=== PATIENT | male | born 1970 | race Caucasian/White ===

== ENCOUNTER 2023-08-20 22:10 | Observation (INO) | payer BC, SELFPAY ==
[2023-08-20 16:13] VITALS: BP 169/111
[2023-08-20 16:31] LABS: % Eosinophils 0.5 % (0-6); % Immature Granulocytes 0.2 % (0-0.5); % Lymphocytes 16.1 % (20.5-51.1); % Monocytes 6.9 % (1.7-9.3); % Neutrophils 75.3 % (42.2-75.2); Absolute Basophils 0.1 10^3/uL (0-0.2); Absolute Lymphocytes 1.3 10^3/uL (1.2-3.4); Absolute Monocytes 0.6 10^3/uL (0.1-0.6); Absolute Neutrophils 6.1 10^3/uL (1.4-6.5); Hematocrit 40.9 % (39.0-52.0); Hemoglobin 15.2 g/dL (13.0-18.0); Mean Corp Hgb Conc. 37.2 g/dL (33.0-37.0); Mean Corpuscular Hgb 31.6 pg (27.0-31.0); Mean Platelet Volume 9.1 fL (7.4-10.4); Nucleated Red Blood Cells % 0 % (-); Platelet Count 173 10^3/uL (130-400); Red Blood Cell Count 4.81 10^6/uL (4.70-6.10); Red Cell Dist. Width 11.9 % (11.5-14.5); White Blood Cell Count 8.1 10^3/uL (4.8-10.8)
[2023-08-20 16:45] LABS: ALT (SGPT) 17 U/L (0-50); AST (SGOT) 24 U/L (17-59); Albumin 4.4 g/dl (3.5-5.0); Alkaline Phosphatase 52 U/L (38-126); Blood Urea Nitrogen 12 mg/dl (9-20); Calcium 8.8 mg/dl (8.4-10.2); Carbon Dioxide 22 mmol/L (22-30); Chloride 95 mmol/L (98-107); Glucose 106 mg/dl (70-99); Potassium 3.7 mmol/L (3.5-5.1); Sodium 128 mmol/L (135-145); Total Bilirubin 1.6 mg/dl (0.2-1.3); Total Protein 7.6 g/dl (6.3-8.2); eGFR > 60.00
[2023-08-20 16:54] LABS: Troponin I < 0.012 ng/ml
--- NOTE | 2023-08-20 17:25 | ED.GENMED ---
History of Present Illness
<Wendy Smith PA-C - Last Filed: 08/20/23 23:11>
General
Chief Complaint: Blood Pressure Problem
Source: patient
Exam Limitations: none
Time Seen by Provider: 08/20/23 17:05
Nursing documentation reviewed up to this point in time: agreed with
Travel History
Have you had any contact with someone who has COVID-19?: No
Do you have any symptoms of coronavirus? Fever > 100 degrees, chills, cough, shortness of breath, sore throat, loss of taste or smell, muscle aches, or headache?: No
History of Present Illness
History of Present Illness:
pt is a 53 y/o M
previuosly was told to start BP meds but never did and asys that with diet and exercise his bp improved
also unprovoked dvt on anticoagluation for 6 mo, neg coagulopathy w/u previously
here with chest pain that was dull mild left of midline pain all day and then worse at 2 pm while working
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 he went next door to another teachers room and said he didn't feel right
he took ibuprofen around 230 pm
he went to the school nurse around 3 pm and his bp was elevated
he told her about the chst pain and was instructed to come to the ER.
and ultimately by 315 pm the pain in his chest dissipated
he had no pleuritic pain or sob
but says a few nights ago he felt sob in the middle of the night
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
this may be contributory
pt's brother had stroke at young age but was very overwehight and smoked
no [place] hisotry in family
nonsmoker
occ alcohol use, 2-4 nights a week
not a heavy drinker.
Phy Exam
<Wendy Smith PA-C - Last Filed: 08/20/23 23:11>
Physical Exam
Physical Exam:
GENERAL: Alert , in no apparent distress
EYE: pupils equal and reactive
NECK: Supple
ENT: o/p clr, mmm.
CARDIAC: Regular rate and rhythm .
LUNGS: Clear breath sounds bilaterally, no acute respiratory distress, no wheezes/rales/rhonchi
ABDOMEN: Soft, without focal tenderness, no r/g, no cvat, normal bowel sounds
NEUROLOGICAL: Alert and oriented, no focal neuro deficits
SKIN: Warm and dry, skin intact.
MUSCULOSKELETAL: No edema, well perfused. neg fabián's sign
PSYCH: Normal and appropriate interaction.
Course
<Wendy Smith PA-C - Last Filed: 08/20/23 23:11>
Orders/Labs/Results
Orders:
Orders
08/20/23 Dinner
Regular
At Your Request: Full Participation
Does patient need a safe tray?: No
08/20/23 16:18
Electrocardiogram (*1) Urgent
Reason for Study: Chest Pain
EKG- Treatment ONCE
08/20/23 16:26
Complete Blood Count/With Diff Urgent
Comprehensive Metabolic Panel Urgent
Troponin I Urgent
08/20/23 17:35
CR Chest - 2 Views Urgent
Comment:
Reason For Exam: chest pain
08/20/23 17:37
EKG- Treatment ONCE
08/20/23 18:14
D-Dimer Urgent
PTT Urgent
Comment: ADD ON
08/20/23 18:48
CT Chest Pe Study Urgent
Comment:
Reason For Exam: CHEST PAIN, ELEVATED D DIMER, H/O DVT PREVIUOSLY
08/20/23 19:28
Troponin I Urgent
08/20/23 19:30
Electrocardiogram (*1) Urgent
Reason for Study: Chest Pain
08/20/23 19:51
0.9% Sodium Chloride 500 ml [Nss] 500 ml IV BOLUS
08/20/23 21:02
PTT Urgent
Comment: Obtain baseline before beginning heparin infusion if not already collected
Heparin 7,900 units IV NOW STA
Nursing to Place Non Medication Order As Directed
Physician Order: PTT 6 hours after initial start of Heparin infusion
Above order entered?: Yes
08/20/23 21:05
Add On - Microbiology Urgent
Tests Added?: aptt
08/20/23 21:11
Heparin 7,900 units IV PRN PRN
08/20/23 21:12
Heparin 3,900 units IV PRN PRN
08/20/23 21:15
Heparin 76948 Units/250 ml 25,000 units in 250 ml IV PER PROTOCOL
Weight to be used for heparin protocol in kilograms (kg):: 98.5
Protocol:: DVT/PE
PTT Goal Range to be used:: PTT 73 to 111 seconds
Order type:: Initial
INITIAL Infusion Dose (UNITS/KG/hr) & then follow protocol:: 18 units/kg/hr
Infusion Dose in UNITS/hr & then follow protocol (UNITS/hr):: 1,800
INFUSION RATE in mL/hr & then follow protocol (mL/hr):: 18
For DVT/PE algorithm, re-bolus for low PTT?: Yes
PTT less than or equal to 64 seconds:: Re-bolus 80 units/kg (max 10,000units). Increase by 400 units/hr
(+ 4mL/hr)
PTT 64.1 to 72.9 seconds:: Re-bolus 40 units/kg (max 5,000 units). Increase by 200 units/hr
(+ 2mL/hr)
PTT 73 to 111 seconds:: Target Range. No change in rate.
PTT 111.1 to 130.9 seconds:: Decrease rate by 200 units/hr (- 2 mL/hr)
PTT 131 to 199.9 seconds:: HOLD for 1 hr. Then decrease by 300 units/hr (- 3mL/hr)
PTT greater than or equal to 200 seconds:: HOLD for 2 hrs & Notify Provider. Then decrease by 400 units/hr
(- 4mL/hr)
Lab follow-up:: Each change, PTT q6h until 2 consecutive are therapeutic. Then
PTT daily.
08/20/23 21:33
Admit/Transfer Patient As Directed
Co-Sign Provider:
Level of Care: Observation services
Assign to:: Telemetry
Physician / Group: neena
Diagnosis: pulmonary embolism
Reason for Telemetry: Arrhythmia
Date to Stop Telemetry: 08/23/23
Time to Stop Telemetry: 11:00
08/20/23 21:34
Code Status As Directed
Resuscitation Status: Full Code
08/20/23 22:26
Acetaminophen [Tylenol] 650 mg PO Q4HPRN PRN
08/20/23 22:26
VTE Contraindication Routine
VTE Mechanical Device Contraindication: Medical Contraindication
Pharmocologic Contraindication: Medical Contraindication
Heparin Protocol- PTT Orders As Directed
PTT per Heparin protocol: -Obtain CBC and baseline PTT - if not already collected.
-Obtain PTT 6 hours from start of infusion. Then, every 6 hours until 2 consecutive
PTT's are therapeutic. Then, PTT Daily.
-With each rate change, obtain PTT every 6 hours until 2 consecutive PTT's are
therapeutic. Then, PTT Daily.
Activity As Directed
Activity Level: As Tolerated
Notify MD As Directed
Notify physician if: PTT is greater than or equal to 200.
Vital Signs As Directed
Frequency: Per unit guidelines
US Periph Venous LOWER Ext Ángel Routine
Comment:
Reason For Exam: PEs present
08/21/23 03:30
PTT Urgent
08/21/23 06:00
Complete Blood Count/With Diff IN AM
Comprehensive Metabolic Panel IN AM
08/22/23 06:00
Complete Blood Count/No Diff Q2D
Comment: notify provider: Platelet count < 130,000 or decrease by 50% from baseline
08/23/23 11:00
DC Protocol for Telemetry ONCE
08/24/23 06:00
Complete Blood Count/No Diff Q2D
Comment: notify provider: Platelet count < 130,000 or decrease by 50% from baseline
08/26/23 06:00
Complete Blood Count/No Diff Q2D
Comment: notify provider: Platelet count < 130,000 or decrease by 50% from baseline
08/28/23 06:00
Complete Blood Count/No Diff Q2D
Comment: notify provider: Platelet count < 130,000 or decrease by 50% from baseline
08/30/23 06:00
Complete Blood Count/No Diff Q2D
Comment: notify provider: Platelet count < 130,000 or decrease by 50% from baseline
09/01/23 06:00
Complete Blood Count/No Diff Q2D
Comment: notify provider: Platelet count < 130,000 or decrease by 50% from baseline
09/03/23 06:00
Complete Blood Count/No Diff Q2D
Comment: notify provider: Platelet count < 130,000 or decrease by 50% from baseline
09/05/23 06:00
Complete Blood Count/No Diff Q2D
Comment: notify provider: Platelet count < 130,000 or decrease by 50% from baseline
Abnormal Lab Results
08/20/23 08/20/23
16:26 18:14
MCH 31.6 H pg
(27.0-31.0)
MCHC 37.2 H g/dL
(33.0-37.0)
Neutrophils % 75.3 H %
(42.2-75.2)
Lymphocytes % 16.1 L %
(20.5-51.1)
D-Dimer 1.95 H ug/mlFEU
(0.00-0.50)
Sodium 128 L mmol/L
(135-145)
Chloride 95 L mmol/L
(98-107)
Glucose 106 H mg/dl
(70-99)
Total Bilirubin 1.6 H mg/dl
(0.2-1.3)
08/20/23 16:26
08/20/23 16:26
Vital Signs
Blood pressure: 153/88
Initial and Last Documented VS:
Initial Vital Signs
Temp Pulse Resp BP Pulse Ox
98.5 F 88 18 169/111 98
08/20/23 16:13 08/20/23 16:13 08/20/23 16:13 08/20/23 16:13 08/20/23 16:13
Last Documented Vital Signs
Temp Pulse Resp BP Pulse Ox
98.1 F 61 19 139/92 94
08/20/23 22:37 08/20/23 22:45 08/20/23 22:45 08/20/23 22:00 08/20/23 22:45
<Jovan Sullivan MD - Last Filed: 08/20/23 21:13>
Orders/Labs/Results
Orders:
Orders
08/20/23 Dinner
Regular
At Your Request: Full Participation
Does patient need a safe tray?: No
08/20/23 16:18
Electrocardiogram (*1) Urgent
Reason for Study: Chest Pain
EKG- Treatment ONCE
08/20/23 16:26
Complete Blood Count/With Diff Urgent
Comprehensive Metabolic Panel Urgent
Troponin I Urgent
08/20/23 17:35
CR Chest - 2 Views Urgent
Comment:
Reason For Exam: chest pain
08/20/23 17:37
EKG- Treatment ONCE
08/20/23 18:14
D-Dimer Urgent
PTT Urgent
Comment: ADD ON
08/20/23 18:48
CT Chest Pe Study Urgent
Comment:
Reason For Exam: CHEST PAIN, ELEVATED D DIMER, H/O DVT PREVIUOSLY
08/20/23 19:28
Troponin I Urgent
08/20/23 19:30
Electrocardiogram (*1) Urgent
Reason for Study: Chest Pain
08/20/23 19:51
0.9% Sodium Chloride 500 ml [Nss] 500 ml IV BOLUS
08/20/23 21:02
PTT Urgent
Comment: Obtain baseline before beginning heparin infusion if not already collected
Heparin 7,900 units IV NOW STA
Nursing to Place Non Medication Order As Directed
Physician Order: PTT 6 hours after initial start of Heparin infusion
Above order entered?: Yes
08/20/23 21:05
Add On - Microbiology Urgent
Tests Added?: aptt
08/20/23 21:11
Heparin 7,900 units IV PRN PRN
08/20/23 21:12
Heparin 3,900 units IV PRN PRN
08/20/23 21:15
Heparin 22535 Units/250 ml 25,000 units in 250 ml IV PER PROTOCOL
Weight to be used for heparin protocol in kilograms (kg):: 98.5
Protocol:: DVT/PE
PTT Goal Range to be used:: PTT 73 to 111 seconds
Order type:: Initial
INITIAL Infusion Dose (UNITS/KG/hr) & then follow protocol:: 18 units/kg/hr
Infusion Dose in UNITS/hr & then follow protocol (UNITS/hr):: 1,800
INFUSION RATE in mL/hr & then follow protocol (mL/hr):: 18
For DVT/PE algorithm, re-bolus for low PTT?: Yes
PTT less than or equal to 64 seconds:: Re-bolus 80 units/kg (max 10,000units). Increase by 400 units/hr
(+ 4mL/hr)
PTT 64.1 to 72.9 seconds:: Re-bolus 40 units/kg (max 5,000 units). Increase by 200 units/hr
(+ 2mL/hr)
PTT 73 to 111 seconds:: Target Range. No change in rate.
PTT 111.1 to 130.9 seconds:: Decrease rate by 200 units/hr (- 2 mL/hr)
PTT 131 to 199.9 seconds:: HOLD for 1 hr. Then decrease by 300 units/hr (- 3mL/hr)
PTT greater than or equal to 200 seconds:: HOLD for 2 hrs & Notify Provider. Then decrease by 400 units/hr
(- 4mL/hr)
Lab follow-up:: Each change, PTT q6h until 2 consecutive are therapeutic. Then
PTT daily.
08/20/23 21:33
Admit/Transfer Patient As Directed
Co-Sign Provider:
Level of Care: Observation services
Assign to:: Telemetry
Physician / Group: neena
Diagnosis: pulmonary embolism
Reason for Telemetry: Arrhythmia
Date to Stop Telemetry: 08/23/23
Time to Stop Telemetry: 11:00
08/20/23 21:34
Code Status As Directed
Resuscitation Status: Full Code
08/20/23 22:26
Acetaminophen [Tylenol] 650 mg PO Q4HPRN PRN
08/20/23 22:26
VTE Contraindication Routine
VTE Mechanical Device Contraindication: Medical Contraindication
Pharmocologic Contraindication: Medical Contraindication
Heparin Protocol- PTT Orders As Directed
PTT per Heparin protocol: -Obtain CBC and baseline PTT - if not already collected.
-Obtain PTT 6 hours from start of infusion. Then, every 6 hours until 2 consecutive
PTT's are therapeutic. Then, PTT Daily.
-With each rate change, obtain PTT every 6 hours until 2 consecutive PTT's are
therapeutic. Then, PTT Daily.
Activity As Directed
Activity Level: As Tolerated
Notify MD As Directed
Notify physician if: PTT is greater than or equal to 200.
Vital Signs As Directed
Frequency: Per unit guidelines
Perip Venous LOWER Ext Ángel Routine
Comment:
Reason For Exam: PEs present
08/21/23 03:30
PTT Urgent
08/21/23 06:00
Complete Blood Count/With Diff IN AM
Comprehensive Metabolic Panel IN AM
08/22/23 06:00
Complete Blood Count/No Diff Q2D
Comment: notify provider: Platelet count < 130,000 or decrease by 50% from baseline
08/23/23 11:00
DC Protocol for Telemetry ONCE
08/24/23 06:00
Complete Blood Count/No Diff Q2D
Comment: notify provider: Platelet count < 130,000 or decrease by 50% from baseline
08/26/23 06:00
Complete Blood Count/No Diff Q2D
Comment: notify provider: Platelet count < 130,000 or decrease by 50% from baseline
08/28/23 06:00
Complete Blood Count/No Diff Q2D
Comment: notify provider: Platelet count < 130,000 or decrease by 50% from baseline
08/30/23 06:00
Complete Blood Count/No Diff Q2D
Comment: notify provider: Platelet count < 130,000 or decrease by 50% from baseline
09/01/23 06:00
Complete Blood Count/No Diff Q2D
Comment: notify provider: Platelet count < 130,000 or decrease by 50% from baseline
09/03/23 06:00
Complete Blood Count/No Diff Q2D
Comment: notify provider: Platelet count < 130,000 or decrease by 50% from baseline
09/05/23 06:00
Complete Blood Count/No Diff Q2D
Comment: notify provider: Platelet count < 130,000 or decrease by 50% from baseline
Abnormal Lab Results
08/20/23 08/20/23
16:26 18:14
MCH 31.6 H pg
(27.0-31.0)
MCHC 37.2 H g/dL
(33.0-37.0)
Neutrophils % 75.3 H %
(42.2-75.2)
Lymphocytes % 16.1 L %
(20.5-51.1)
D-Dimer 1.95 H ug/mlFEU
(0.00-0.50)
Sodium 128 L mmol/L
(135-145)
Chloride 95 L mmol/L
(98-107)
Glucose 106 H mg/dl
(70-99)
Total Bilirubin 1.6 H mg/dl
(0.2-1.3)
08/20/23 16:26
08/20/23 16:26
Vital Signs
Initial and Last Documented VS:
Initial Vital Signs
Temp Pulse Resp BP Pulse Ox
98.5 F 88 18 169/111 98
08/20/23 16:13 08/20/23 16:13 08/20/23 16:13 08/20/23 16:13 08/20/23 16:13
Last Documented Vital Signs
Temp Pulse Resp BP Pulse Ox
98.1 F 61 19 139/92 94
08/20/23 22:37 08/20/23 22:45 08/20/23 22:45 08/20/23 22:00 08/20/23 22:45
<Wendy Smtih PA-C - Last Filed: 08/20/23 23:11>
MDM/Problems Addressed
Differential Diagnosis Includes:
acs, hypertensive urgency, PE, dissection
MDM/Problems Addressed:
53 y/o M with h/o remote unprovoked dvt no longer anticoagulated; had chest pain today, worse at 2 pm; has been feeling mild sob recently as well; no leg swelling, elevated BP today at work, improved without intervention
vitals stable, well appearing, not hypoxic, no ischemic ekg changes, trop x 2 neg, ct chest shows b/l PE no R heart strain;
d/w ed attending
will admit for IV heparin.
<Wendy Smith PA-C - Last Filed: 08/20/23 23:11>
*Critical Care Note
Total Time (30-74mins, 75-104mins- exclusive of procedures): Not Applicable
ED Attending Note
<Wendy Smith PA-C - Last Filed: 08/20/23 23:11>
-
Portions of this chart may have been created with voice recognition software.� Occasional wrong word or��sound alike� substitutions may have occurred due to the inherent limitations of voice recognition software.
<Jovan Sullivan MD - Last Filed: 08/20/23 21:13>
ED Attending Note
Patient seen and examined by attending physician: Yes
ED Attending Note:
Patient without any significant past medical history, presents to ED secondary to sudden onset of left-sided chest pain today. Chest pain described as dull, with associated back pain, along with mild shortness of breath. Symptoms have been
intermittent and fluctuating since onset this afternoon. Denies associated dizziness, diaphoresis, or nausea. Denies previous history of similar symptoms. Denies leg pain or swelling. Denies recent travel or surgery. Of note, patient had sore
throat 1 week ago, which resolved spontaneously. Denies family history of heart disease. Denies smoking or drinking alcohol. Patient states that he currently has increased stress at home. Back pain, patient states that he has had previously,
secondary to pinched nerve. However, back pain has been never been associated with chest pain.
Physical Exam
General: no apparent distress, not acutely ill. afebrile.
Head: nc/at. eomi
Neck: supple. no meningeal signs.
Heart: s1/s2 regular rate and rhythm, no murmur. equal radial pulses.
Lungs: no acute respiratory distress. clear bilaterally. chest wall nontender to palpation.
Abdomen: normal bowel sounds. not tender.
Neuro: alert and oriented. no focal neurological deficits
Skin: no rash
Psychiatric: well kept. interactive and cooperative
Extremities: no edema. no calf tenderness.
EKG unremarkable. Troponin negative. However, D-dimer elevated. In light of patient's previous history of blood clots in his leg, we will proceed with CT angiogram.
CT angiogram consistent with bilateral PE, without evidence of right heart strain. Troponin normal. However, in light of extensive PE noted along with pain as well as transient hypoxia noted on observation, patient will be admitted for further
evaluation and treatment. Heparin protocol will be started.
Discharge Plan
Departure
Patient Disposition: Admit
Date of Disposition: 08/20/23
Time of Disposition: 20:55
Admit to: Telemetry
Presentation/result/management discussed w/ accepting MD/DO: Hospitalist
Condition: Fair
Covid-19: Not Applicable
Discharge Problem:
Bilateral pulmonary embolism
Interventions
Interventions:
*Risk Screen - Suicide Last Done: 08/20/23 16:15
*General Assessment Last Done: 08/20/23 16:15
*Neglect/Abuse Screening Last Done: 08/20/23 16:15
*ED COVID-19 Vaccine History Last Done: 08/20/23 16:15
ED- Cardiac Assessment Last Done: 08/20/23 18:20
ED- Pulmonary Assessment Last Done: 08/20/23 18:20
[2023-08-20 18:08] VITALS: BP 148/95
[2023-08-20 18:38] LABS: D-Dimer 1.95 ug/mlFEU (0.00-0.50)
[2023-08-20 19:28] VITALS: BP 151/96
[2023-08-20 20:15] LABS: Troponin I < 0.012 ng/ml
[2023-08-20] MEDS: NSS 500 IV (20:42)
[2023-08-20 20:43] VITALS: BMI 33.0
[2023-08-20 20:44] VITALS: BP 135/90
[2023-08-20 21:18] LABS: APTT 26.7 Sec (23.4-35.0)
[2023-08-20] MEDS: HEPARIN 7900 UNITS IV (21:30)
[2023-08-20] MEDS: HEPARIN 25000 UNITS/250 ML IV (21:32)
--- NOTE | 2023-08-20 21:36 | HPS.HSE ---
Family Physician
-
Family Physician: SAVANNAH Richards
Chief Complaint
-
chest pain
History of Present Illness
53-year-old male past medical history of remote unprovoked DVT presenting with chest pain that was dull and left of midline all day and then worse in the afternoon. 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
chest pain with some radiation to the back. Chest pain worse with breathing. He took ibuprofen and then went to the nurse and was noted elevated blood pressure. He was noted to come to emergency room. His chest pain later resolved. A few nights
ago he had shortness of breath in the middle the night and while working out. He denies any dizziness or passing out.
Denies any recent COVID infection, recent surgeries, recent long flights or trips or recent immobility.
He had a DVT in his left lower extremity in 2014 treated with 3 months of anticoagulation and subsequently aspirin. He had outpatient hypercoagulable workup which was inconclusive. His brother and father had blood clots.
He denies smoking. He drinks alcohol 2-4 times a week.
Patient has been drinking a lot more fluids recently. He drinks 6-7 large bottles of water every day.
Medical History
Past Medical History
Past Medical History: Reports Other (unprovoked DVT)
Past Surgical History: Reports Other (hernia surgery )
Social History
Tobacco: Non-smoker
Alcohol: Occasional
Drug: None
Family History
Family History: Not pertinent
Allergies / Home Medications
Allergies reflects when Allergies were last updated in [facility].
Home Medications with original date entered in [facility]
Allergy/Medication List:
Allergies
Allergy/AdvReac Type Severity Reaction Status Date / Time
No Known Allergies Allergy Verified 08/20/23 16:15
Home Medications
aspirin 81 mg tablet,delayed release 81 mg PO DAILY 08/20/23
ibuprofen 200 mg capsule 600 mg PO Q6H PRN mild pain 08/20/23
Review of Systems
-
History Source: Patient
A 12 point ROS was completed and negative except as noted: Yes
Constitutional: Reports No Symptoms
EENT: Reports No Symptoms
Respiratory: Reports See HPI
Cardiac: Reports See HPI
Abdomen/GI: Reports No Symptoms
: Reports No Symptoms
Musculoskeletal: Reports No Symptoms
Skin: Reports No Symptoms
Neurological: Reports No Symptoms
Endocrine: Reports No Symptoms
Hematologic/Lymphatic: Reports No Symptoms
Psych: Reports No Symptoms
Physical Exam
Vital Signs
Vital Signs
Temp Pulse Resp BP Pulse Ox
98.5 F 65 16 135/90 97
08/20/23 16:13 08/20/23 20:44 08/20/23 20:44 08/20/23 20:44 08/20/23 20:44
Physical Exam
General: Well Developed, Well Nourished and No Apparent Distress
HEENT: NormoCephalic, Moist mucous membranes and Atraumatic
Respiratory: Clear
Cardiac: S1/S2 and Regular Rhythm; No Murmur or Rub
GI: Soft, Non Tender, Non Distended and Normal Bowel Sounds; No Organomegaly
Rectal: Deferred by Provider
Musculoskeletal: No Clubbing, No Cyanosis and No Edema
Skin: No Rash
Neuro: Nonfocal/grossly intact
Laboratory Results
-
08/20/23 16:26
08/20/23 16:26
Laboratory Results
APTT 26.7 Sec (23.4-35.0) 08/20/23 18:14
Total Bilirubin 1.6 mg/dl (0.2-1.3) H 08/20/23 16:26
AST 24 U/L (17-59) 08/20/23 16:26
ALT 17 U/L (0-50) 08/20/23 16:26
Alkaline Phosphatase 52 U/L (38-126) 08/20/23 16:26
Troponin I < 0.012 ng/ml 08/20/23 19:28
Data Reviewed
-
Lab Data: Labs Reviewed by me
Old Records: Reviewed
Impression/Plan
-
IMPRESSION:
PLAN:
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
# History of unprovoked DVT
-CT scan shows filling defects in the right lower lobe pulmonary artery, right middle lobe pulmonary artery, basilar segment pulmonary arteries of right lower lobe as well as left lower lobe pulmonary artery and the basilar segmental pulm arteries
of the left lower lobe
-CT does not show any evidence of heart right heart strain
-EKG shows normal sinus rhythm
-Troponin negative
-Check bilateral lower extremity ultrasound
-Heparin drip started
-Will require lifelong Eliquis
-Hold aspirin
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
-Drinking 6-7 large bottles per day
-Restrict fluids to more reasonable amount
Full code
DVT prophylaxis�heparin drip
Regular diet
[2023-08-20 22:00] VITALS: BP 139/92
[2023-08-20 23:00] VITALS: BP 126/93
[2023-08-21] VITALS: BP 135/88
[2023-08-21 01:28] VITALS: BP 156/98; BMI 32.1
--- NOTE | 2023-08-21 01:30 | PTCARENOTE ---
Pt from ED A+OX3 VSS, pt oriented to room and POC.
[2023-08-21 03:29] VITALS: BP 149/90
[2023-08-21 04:10] LABS: % Basophils 1.3 % (0-2); % Immature Granulocytes 0.3 % (0-0.5); % Lymphocytes 28.7 % (20.5-51.1); % Monocytes 8.8 % (1.7-9.3); % Neutrophils 58.9 % (42.2-75.2); Absolute Basophils 0.1 10^3/uL (0-0.2); Absolute Eosinophils 0.1 10^3/uL (0-0.7); Absolute Lymphocytes 1.8 10^3/uL (1.2-3.4); Absolute Monocytes 0.5 10^3/uL (0.1-0.6); Absolute Neutrophils 3.6 10^3/uL (1.4-6.5); Hematocrit 41.9 % (39.0-52.0); Hemoglobin 15.1 g/dL (13.0-18.0); Mean Corpuscular Hgb 31.3 pg (27.0-31.0); Mean Corpuscular Volume 86.7 fL (80.0-94.0); Mean Platelet Volume 9.8 fL (7.4-10.4); Nucleated Red Blood Cells % 0 % (-); Platelet Count 180 10^3/uL (130-400); Red Blood Cell Count 4.83 10^6/uL (4.70-6.10); Red Cell Dist. Width 11.8 % (11.5-14.5); White Blood Cell Count 6.1 10^3/uL (4.8-10.8)
[2023-08-21 04:16] LABS: APTT 199.2 Sec (23.4-35.0)
[2023-08-21 04:59] LABS: ALT (SGPT) 15 U/L (0-50); AST (SGOT) 28 U/L (17-59); Alkaline Phosphatase 54 U/L (38-126); Blood Urea Nitrogen 9 mg/dl (9-20); Calcium 9.1 mg/dl (8.4-10.2); Carbon Dioxide 28 mmol/L (22-30); Chloride 102 mmol/L (98-107); Estimated Creatinine Clearance 105 ml/min; Glucose 99 mg/dl (70-99); Sodium 139 mmol/L (135-145); Total Bilirubin 1.7 mg/dl (0.2-1.3); Total Protein 6.8 g/dl (6.3-8.2); eGFR > 60.00
[2023-08-21 07:00] VITALS: BP 129/79
--- NOTE | 2023-08-21 09:40 | W.PN.HOSP.TC ---
Today's Communication/Plan
-
Doppler ultrasound lower extremities
Discharge
Assessment / Plan
Assessment / Plan
Gen-AAOx3, NAD obese
HEENT-NC, AT, anicteric, clear oral mm
Neck-supple
CV-reg, no M, +S1/S2
Lungs-clear B/L
Abd-soft, NT, ND
Ext-no edema
Musculoskeletal-no cyanosis, clubbing
Skin-warm and dry
Neuro-grossly non-focal
Psych-calm, cooperative
Acute bilateral pulmonary emboli -suspect to be unprovoked. History of unprovoked DVT about 9 years ago treated with 3 months of Xarelto. Will transition to Eliquis today. Recommend outpatient follow-up with hematology. Hemodynamically stable.
Troponins negative. Await lower extremity Doppler ultrasound. No indication for echocardiogram.
Recommend stopping aspirin on discharge. Careful use of NSAIDs only as needed. Discussed with patient.
Incidental left lower lobe pulmonary nodule - 4.[address] scan. He is a non-smoker. Suspect he is at low risk.
Obesity due to excess calories
Full code
Dispo -stable for discharge today after Doppler ultrasound obtained. Outpatient follow-up with PCP and hematology. Needs cancer screenings as he is overdue for colonoscopy, has never had one. Discussed with patient and .
35 minutes spent in discharge process.
Anticipated Discharge: Today
Subjective/Interval History
-
Date of Service: August 21, 2023
Patient seen and examined. Still with mild pleurisy. Denies shortness of breath.
Objective Data
-
Labs:
Laboratory Results
08/20/23 08/21/23 08/21/23
21:02 03:06 11:25
WBC 6.1
Hgb 15.1
Hct 41.9
Plt Count 180
APTT Cancelled 199.2 H* Pending
Sodium 139 D
Potassium 4.0
Chloride 102
Carbon Dioxide 28
BUN 9
Creatinine 0.9
Glucose 99
Calcium 9.1
Total Bilirubin 1.7 H
AST 28
ALT 15
Alkaline Phosphatase 54
Vital Signs:
Vital Signs
Temp Pulse Resp BP Pulse Ox
98.2 F 61 18 129/79 97
08/21/23 07:00 08/21/23 07:00 08/21/23 07:00 08/21/23 07:00 08/21/23 08:29
I&O
08/20/23 08/21/23 08/22/23
06:59 06:59 06:59
Intake Total 0 / 0
Balance 0 / 0
Review of Systems
-
History Source: Patient
All other systems: Reviewed and negative
--- NOTE | 2023-08-21 09:46 | W.DS.TRANS ---
DC Summary - [employer]
-
Discharge Instructions:
Discharge Diagnosis/Procedures Bilateral pulmonary emboli
Diet Regular
Activity As tolerated
Driving Restrictions As prior to admission
Bathing Restrictions None
Instructions:
Stand-Alone Forms:
Changes to Home Medications: Yes
Discharge Medications:
DC Medications w/original date entered in [facility]
apixaban 5 mg (74 tabs) tablets in a dose pack See Rx Instructions PO .COMPLEX #74 ea 08/21/23
Home Medication Changes
Stop aspirin
Pending Results: No
[2023-08-21] MEDS: ELIQUIS 10 MG PO ×2 (10:43→18:09)
[2023-08-21 11:26] VITALS: BP 130/74
--- NOTE | 2023-08-21 14:44 | CM ---
CM following re: d/c planning
Chart reviewed
CM met with the patient & his family at bedside; IA completed
Pt is here as observation, obs letter reviewed and copy provided
Pt states he and his spouse reside in a [place] with no KAYLA
[employer] patient reports independence at baseline
Pt has no previous hx of VN/SNF/DME
Pt has prescription coverage and rx's are filled at on [address] [place]
Pt PCP-SAVANNAH Montelongo
Pt has been cleared medically for d/c and has no needs
PLAN; d/c home no needs anticipated
[2023-08-21 16:00] VITALS: BP 131/76
--- NOTE | 2023-08-21 16:20 | PTCARENOTE ---
Pt AAO x3, HAYDEN well, ambulatory in room/to BR; crow well. VSS. Telemetry:NSR. On room air- pulse ox 96%, no SOB noted. Pt occ c/o s light Lt upper chest discomfort; refused offer of prn pain med. Abd large, soft, crow reg diet. Voiding in BR
without difficulty. Pt currently off unit for US BLE; anticipating DC later his shift. Will continue to monitor.
--- NOTE | 2023-09-01 09:59 | OID.L.PAT ---
Pulmonary Nodule Pat Letter
- -
09/01/23
GASPER BAIG
[address]
[place], [place]
Dear GASPER,
A pulmonary nodule was seen on an imaging study done by [facility]. This was reviewed by the [facility] Pulmonary Nodule Advisory Board and the following recommendation was made:
Recommendation: Based on current guidelines, no further follow up is necessary at this time
If you have any questions, please do not hesitate to contact your primary care physician. If you are in need of a Physician, you can go to [email or web address] and click on 'Find a Provider'. Type 'Family Medicine' in the search.
Oncology Nurse Navigator
[facility]
[phone]
--- NOTE | 2023-09-01 10:00 | OID.L.REC ---
Pulmonary Nodule Follow Up
- Recommendation
09/01/23
Pulmonary Nodule Review Recommendations
Your patient, GASPER BAIG, had a pulmonary nodule seen on an imaging study done on 08/20/23 in the [facility] [place] [facility].
This was reviewed by the [facility] [place] Pulmonary Nodule Advisory Board and the following recommendation was made:
Recommendation: Based on current guidelines, no further follow up is necessary at this time
If you have any questions please do not hesitate to contact us.
Sincerely,
Oncology Nurse Navigator
[facility] [place]
[phone]
== END 2023-08-21 19:41 | disposition home or self-care (01) ==
LOC: 4 EAST ACU 22:10
PROVIDERS: Physician Assistant; ADMITTING PHYSICIAN Hospitalist; ATTENDING PHYSICIAN Hospitalist; EMERGENCY PHYSICIAN Emergency Medicine; FAMILY PHYSICIAN Nurse Practitioner Family
DX: I26.99 Other pulmonary embolism without acute cor pulmonale (principal); I82.412 Acute embolism and thrombosis of left femoral vein; I82.432 Acute embolism and thrombosis of left popliteal vein; E87.1 Hypo-osmolality and hyponatremia; E66.09 Other obesity due to excess calories; R91.1 Solitary pulmonary nodule; I10 Essential (primary) hypertension; Z68.32 Body mass index [BMI] 32.0-32.9, adult; Z79.82 Long term (current) use of aspirin; Z86.718 Personal history of other venous thrombosis and embolism
CPT/HCPCS: 71046; 71275; 80053; 84484; 85025; 85379; 85730; 93005; 93970; 96361; 96365; 96366; 99285; G0378; Q9967

== ENCOUNTER → 2023-09-10 09:10 | Outpatient (REF) | payer BC, SELFPAY | LOC: HWRCS 09:10 | PROVIDERS: ATTENDING PHYSICIAN Nurse Practitioner Family | DX: I26.99 Other pulmonary embolism without acute cor pulmonale (principal); R07.1 Chest pain on breathing | CPT/HCPCS: 93306 ==

== ENCOUNTER → 2023-10-15 09:53 | Outpatient (REF) | payer BC, SELFPAY | LOC: RCS 09:53 | PROVIDERS: ATTENDING PHYSICIAN Internal Medicine Cardiovascular Disease; FAMILY PHYSICIAN Nurse Practitioner Family | DX: R07.89 Other chest pain (principal) | CPT/HCPCS: 93017; 93350 ==